=== PATIENT | female | born 1935 | race Caucasian/White ===

== ENCOUNTER → 2018-02-23 | Outpatient (CLI) | payer MEDICARE, OTHER ==
[~2018-02-23] MED LIST: ASPIR 8181 MG PO; DIOVAN HCT 1601 EAC1; DIOVAN160 MG PO; DIOVAN320 MG PO; LEVOXYL PO; PLAVIX 75 MG TA75 MG; PRILOSEC; VESICARE PO; ZANTAC 150MG T150 M1 PO
== END ==
LOC: M.RAD 09:29
DX: Z12.31 Encounter for screening mammogram for malignant neoplasm of breast (principal)

== ENCOUNTER → 2018-06-16 | Outpatient (CLI) | payer MEDICARE, OTHER | LOC: M.ULTRA 07:29 | DX: K80.20 Calculus of gallbladder without cholecystitis without obstruction (principal); K76.89 Other specified diseases of liver; R10.13 Epigastric pain ==

== ENCOUNTER → 2018-07-22 | Outpatient (CLI) | payer MEDICARE, OTHER ==
[2018-07-22 09:23] LABS: HEMATOCRIT 38.3 % (37.0-47.0); HEMOGLOBIN 12.5 gm/dL (12.0-15.0); MCH 28.2 pg (26.0-34.0); MCHC 32.7 g/dL (28.0-37.0); MCV 86.3 fL (80.0-100.0); MPV 8.2 fl. (7.2-11.1); NUCLEATED RBCS 0 /100WBC; PLATELET COUNT* 235 thou/uL (150-400); RBC 4.44 mil/uL (4.20-5.00); RDW-CV 14.3 % (10.5-14.5); WBC 2.7 thou/uL (4.0-11.0)
[2018-07-22 09:44] LABS: ALBUMIN 3.4 g/dL (3.4-5.0); CALCIUM 8.8 mg/dL (8.5-10.1); CREATININE 1.1 mg/dL (0.6-1.3); TOTAL BILIRUBIN 0.4 mg/dL (<0.1-1.0); TOTAL PROTEIN 7.1 g/dL (6.4-8.2)
[2018-07-22 10:08] LABS: ABSOLUTE BASOPHILS 0.1 thou/uL (0.0-0.2); ABSOLUTE EOSINOPHILS 0.1 thou/uL (0.0-0.7); ABSOLUTE LYMPHOCYTES 1.3 thou/uL (0.8-5.3); ABSOLUTE MONOCYTES 0.1 thou/uL (0.0-1.2); ATYPICAL LYMPHS 6 %; METAMYELOCYTES 1 %; PLATELET ESTIMATE ADEQUATE
[2018-07-22 10:27] LABS: ESR (SEDRATE) 15 mm/hr (0-30)
== END ==
LOC: M.LAB 08:59
PROVIDERS: Psychiatry & Neurology Neuromuscular Medicine
DX: G45.9 Transient cerebral ischemic attack, unspecified (principal); M25.50 Pain in unspecified joint; R27.0 Ataxia, unspecified

== ENCOUNTER → 2018-08-03 | Outpatient (CLI) | payer MEDICARE, OTHER | LOC: M.MRI 08:22 | DX: I67.82 Cerebral ischemia (principal); G45.8 Other transient cerebral ischemic attacks and related syndromes; G31.9 Degenerative disease of nervous system, unspecified; G43.109 Migraine with aura, not intractable, without status migrainosus; G93.6 Cerebral edema; M25.50 Pain in unspecified joint; R27.0 Ataxia, unspecified ==

== ENCOUNTER → 2019-09-15 | Outpatient (CLI) | payer MEDICARE, OTHER | LOC: M.LAB 13:33 | DX: G43.909 Migraine, unspecified, not intractable, without status migrainosus (principal); Z86.73 Personal history of transient ischemic attack (TIA), and cerebral infarction without residual deficits ==

== ENCOUNTER → 2020-10-04 | Outpatient (CLI) | payer MEDICARE, OTHER | LOC: M.ULTRA 09:20 | PROVIDERS: ATTEND Internal Medicine Hematology & Oncology | DX: Z12.31 Encounter for screening mammogram for malignant neoplasm of breast (principal); R10.13 Epigastric pain; K80.20 Calculus of gallbladder without cholecystitis without obstruction; K76.0 Fatty (change of) liver, not elsewhere classified ==